=== PATIENT | female | born 1965 ===

== ENCOUNTER 2020-10-01 09:30 | Outpatient (CLI) | payer OTHER | END 2020-10-01 09:36 | disposition home or self-care (01) | LOC: SONOGRAMA 09:30 | PROVIDERS: ATTEND Pathology Anatomic Pathology & Clinical Pathology | DX: E04.2 Nontoxic multinodular goiter (principal) ==

== ENCOUNTER 2023-02-09 10:27 | Outpatient (CLI) | payer OTHER | END 2023-02-09 10:30 | disposition home or self-care (01) | LOC: SONOGRAMA 10:27 | PROVIDERS: ATTEND Pathology Anatomic Pathology & Clinical Pathology | DX: D44.0 Neoplasm of uncertain behavior of thyroid gland (principal); D34 Benign neoplasm of thyroid gland; E07.9 Disorder of thyroid, unspecified ==

== ENCOUNTER 2023-08-24 10:32 | Outpatient (CLI) | payer OTHER | END 2023-08-24 10:36 | disposition home or self-care (01) | LOC: SONOGRAMA 10:32 | PROVIDERS: ATTEND Pathology Anatomic Pathology & Clinical Pathology | DX: D34 Benign neoplasm of thyroid gland (principal); E07.89 Other specified disorders of thyroid; E04.2 Nontoxic multinodular goiter ==

== ENCOUNTER 2024-08-25 09:42 | Outpatient (CLI) | payer OTHER | END 2024-08-25 09:44 | disposition home or self-care (01) | LOC: SONOGRAMA 09:42 | PROVIDERS: ATTEND Pathology Anatomic Pathology & Clinical Pathology | DX: D34 Benign neoplasm of thyroid gland (principal); E07.89 Other specified disorders of thyroid; E04.1 Nontoxic single thyroid nodule ==